=== PATIENT | female | born 1940 | race Caucasian/White ===

== ENCOUNTER 2017-01-16 15:26 | Emergency (ER) | payer MEDICARE, BC ==
[~2017-01-16] VITALS: Ht 160 cm; Wt 67.3 kg
[~2017-01-16 15:26] MED LIST: ALBU2.5I INH; ASPI81TA45 PO; CELE200 PO; GLUCTAB PO; HYDR50 PO; IPRA0.02 NEB; LISI2.5T3 PO; PRED20 PO; ROSU5 PO; VENL75XR PO
[2017-01-16 15:34] VITALS: BP 152/85; PULSE 101; RESP 16; TEMP 97.8; O2SAT 95
[2017-01-16] MEDS ORDERED: VENL75XR PO (15:59)
[2017-01-16] MEDS ORDERED: METF500T PO (15:59)
[2017-01-16] MEDS ORDERED: CELE200C PO (15:59)
[2017-01-16] MEDS ORDERED: LISI-519 PO (15:59)
[2017-01-16] MEDS ORDERED: ASPI-516 CHEW (15:59)
[2017-01-16] MEDS ORDERED: APIX5TAB PO (15:59)
[2017-01-16] MEDS ORDERED: CYCL10TA PO (16:48)
--- NOTE | 2017-01-16 16:49 | PD ---
HPI Chief Complaint: Musculoskeletal Complaint Time Seen by Provider: 16:22 Travel History International Travel<30 days: No Contact w/Intl Traveler<30days: No Traveled to known affect area: No History of Present Illness HPI 76-year-old female here with right posterior head and neck pain 3 days. She denies injury. She reports she awoke with the pain which is intermittent and feels like a spasm. She denies headache, visual changes, fever or chills, chest pain, shortness of breath, abdominal pain, nausea, vomiting.. The pain is worse when the area is palpated. No alleviating factors. PFSH Past Medical History Hx Anticoagulant Therapy: Yes Asthma: Yes Depression: Yes Cardiac Catheterization: Yes Cardiovascular Problems: Yes (htn , stents x 5, [place]) High Cholesterol: Yes Coronary Artery Disease: Yes Diabetes: Yes (type 2) Patient Takes Glucophage: Yes Diminished Hearing: Yes (HEARING AID LT EAR) Hypertension: Yes Respiratory: Yes (copd) Immunizations Current: Yes (PNEUMONIA SHOT 2005.) Tetanus Vaccination: > 5 Years Influenza Vaccination: No ?: Not Past Surgical History Coronary Stent: Yes Ear Surgery: Yes Hysterectomy: Yes Social History Alcohol Use: Yes (SOCIAL) Tobacco Use: Yes (02/17 PPD) Substance Use: No Allergies-Medications (Allergen,Severity, Reaction): Coded Allergies: No Known Allergies (Verified Adverse Reaction, Unknown, 01/16/17) Reported Meds & Prescriptions Reported Meds & Active Scripts Active Flexeril (Cyclobenzaprine HCl) 10 Mg Tab 10 Mg PO TID Reported Eliquis (Apixaban) 5 Mg Tab Unknown Dose PO BID Lisinopril 5 Mg Tab 5 Mg PO DAILY Effexor XR 24 HR (Venlafaxine HCl) 75 Mg Cap 75 Mg PO BID Aspirin 81 Mg Chew 81 Mg CHEW DAILY Metformin (Metformin HCl) 500 Mg Tab 500 Mg PO BIDPC Celebrex (Celecoxib) 200 Mg Cap 200 Mg PO BID Review of Systems Except as stated in HPI: all other systems reviewed are Neg Physical Exam Narrative GENERAL: Alert female resting comfortably on stretcher. She is no distress. She is conversing with friend in the room. SKIN: Warm and dry. HEAD: Normocephalic. TTP to the right occipitalis scalp muscle. EYES: Pupils are equal round and reactive. No injection or drainage. EOMs intact. NECK: Supple, trachea midline. No JVD or lymphadenopathy. CARDIOVASCULAR: Regular rate and rhythm without murmurs, gallops, or rubs. RESPIRATORY: Breath sounds equal bilaterally. No accessory muscle use. GASTROINTESTINAL: Abdomen soft, non-tender, nondistended. MUSCULOSKELETAL: No cyanosis, or edema. BACK: Nontender without obvious deformity. No CVA tenderness. Data Data Last Documented VS Vital Signs Date Time Temp Pulse Resp B/P (MAP) Pulse Ox O2 Delivery O2 Flow Rate FiO2 01/16/17 15:34 97.8 101 16 152/85 (107) 95 MDM Medical Decision Making Medical Screen Exam Complete: Yes Emergency Medical Condition: Yes Differential Diagnosis Occipital muscle spasm, upper back strain, tension headache Narrative Course 76-year-old female with right posterior scalp pain. On exam she has tenderness to the right occipitalis muscle. She reports the pain is intermittent and spasming in nature. There is no evidence of infection of the scalp. Believe this is a muscle spasm. She'll be treated with a shot of Toradol here instructed to take OTC NSAIDs and muscle relaxers. He shouldn't verbalizes understanding and agrees to plan. Diagnosis Primary Impression: Strain of muscle of head Referrals: Primary Care Physician Additional Instructions: Take [id number] Tylenol or Motrin as needed for pain and discomfort. Take muscle relaxers as needed for muscle spasm. Follow-up the primary doctor. Scripts Cyclobenzaprine (Flexeril) 10 Mg Tab 10 MG PO TID for Muscle Spasm, #12 TAB 0 Refills Prov: Norma Mendez 01/16/17 Disposition: 01 DISCHARGE HOME Condition: Stable Norma Mendez Jan 16, 2017 16:49
[2017-01-16] MEDS ORDERED: KETOROLAC TROMETHAMINE 60 MG/2 ML (IM) VIAL IM ONE (17:00)
== END 2017-01-16 17:01 | disposition home or self-care (01) ==
LOC: PHEFT 15:26
DX: S09.11XA Strain of muscle and tendon of head, initial encounter (principal); M62.838 Other muscle spasm; M54.2 Cervicalgia; E11.9 Type 2 diabetes mellitus without complications; I10 Essential (primary) hypertension; E78.00 Pure hypercholesterolemia, unspecified; H91.92 Unspecified hearing loss, left ear; F17.200 Nicotine dependence, unspecified, uncomplicated; X58.XXXA Exposure to other specified factors, initial encounter; Z79.01 Long term (current) use of anticoagulants; Z79.84 Long term (current) use of oral hypoglycemic drugs; Z87.09 Personal history of other diseases of the respiratory system; Z86.59 Personal history of other mental and behavioral disorders; Z86.79 Personal history of other diseases of the circulatory system
CPT/HCPCS: 96372; 99284; J1885